=== PATIENT | male | born 1945 | race Caucasian/White ===

== ENCOUNTER → 2016-12-24 | Outpatient (CLI) | payer MEDICARE | END | disposition home or self-care (01) | LOC: GMAB 14:34 | PROVIDERS: ATTEND Family Medicine | DX: Z12.5 Encounter for screening for malignant neoplasm of prostate (principal); I10 Essential (primary) hypertension; E29.9 Testicular dysfunction, unspecified | CPT/HCPCS: 84403; 84443; G0103 ==

== ENCOUNTER → 2018-01-02 | Outpatient (CLI) | payer MEDICARE | LOC: GMAB 12:31 | PROVIDERS: ATTEND Family Medicine | DX: I10 Essential (primary) hypertension (principal); E29.9 Testicular dysfunction, unspecified; Z12.5 Encounter for screening for malignant neoplasm of prostate | CPT/HCPCS: 84403; 84443; G0103 ==

== ENCOUNTER → 2018-06-25 | Outpatient (CLI) | payer MEDICARE ==
--- NOTE | 2018-06-28 09:21 | RAD ---
EXAM DESCRIPTION: Hand,Left 3 Views CLINICAL HISTORY: HAND PN COMPARISON: None Available. TECHNIQUE: AP, LATERAL, AND OBLIQUE FINDINGS: The visualized bones appear well mineralized. No acute fracture or dislocation. The soft tissues appear grossly unremarkable. Mild degenerative changes are identified in the first carpometacarpal joint. IMPRESSION: Mild degenerative changes are identified in the first carpometacarpal joint. . Electronically signed by: Gaurav Sarabia MD 06/28/2018 9:20 AM [facility]
== END ==
LOC: RAD 08:09
PROVIDERS: ATTEND Orthopaedic Surgery
DX: M79.642 Pain in left hand (principal)

== ENCOUNTER → 2018-10-01 | Outpatient (CLI) | payer MEDICARE, OTHER ==
--- NOTE | 2018-10-01 16:29 | MRI ---
EXAM DESCRIPTION: Brain w/oContrast CLINICAL HISTORY: HEADACHE COMPARISON: None available TECHNIQUE: Non contrast MRI of the brain is performed according to our usual protocol including multiplanar multi sequence technique. FINDINGS: Sagittal T1 images show intact corpus callosum. Normal pituitary gland with normal T1 appearance of the ambrocio and medulla and upper cervical cord. Normal signal intensity within the clivus and calvarium. Axial T2 fat sat images reveal preservation of intracranial vascular flow voids. Normal crain matter and white matter T2 signal intensity. Prominent ventricles and sulci. The globes appear intact and symmetrical. No abnormal fluid levels in the paranasal sinuses, tympanic cavities or mastoid air cells. Small mucous retention cyst in the inferior right maxillary sinus measures 1.1 cm. Axial flair images show normal signal intensity of the crain matter and the white matter. No definite microvascular ischemic changes. Diffusion weighted images are negative for focal intense increased signal intensity in the brain parenchyma to suggest restricted diffusion. ADC mapping is negative. Axial T1 images show normal crain-white matter differentiation. No high signal intensity hemorrhagic lesion of the brain parenchyma. No subdural hematoma. Axial susceptibility weighted images are negative for focal signal loss to suggest abnormal brain parenchymal calcification or hemosiderin deposition. IMPRESSION: Normal MRI examination of the brain. Electronically signed by: Slim Glass MD 10/01/2018 4:26 PM TECHNICIAN
== END ==
LOC: GMAE 14:40
PROVIDERS: ATTEND Family Medicine
DX: R51 Headache (principal)

== ENCOUNTER → 2019-02-09 | Outpatient (CLI) | payer MEDICARE, OTHER ==
--- NOTE | 2019-02-09 09:30 | RAD ---
EXAM DESCRIPTION: Elbow,Left 3 Views CLINICAL HISTORY: M25.522 COMPARISON: None. TECHNIQUE: 3 views left FINDINGS: Mild degenerative changes are observed in the ulnar trochlear articulation. No fracture is detected. No joint effusion is seen. IMPRESSION: Mild degenerative changes are observed in the elbow. Electronically signed by: Aquiles Recio MD 02/09/2019 9:27 AM CDT
== END ==
LOC: RAD 09:07
PROVIDERS: ATTEND Orthopaedic Surgery
DX: M19.022 Primary osteoarthritis, left elbow (principal)

== ENCOUNTER → 2019-12-23 | Outpatient (CLI) | payer MEDICARE, OTHER | LOC: GMAE 11:27 | PROVIDERS: ATTEND Family Medicine | DX: D50.9 Iron deficiency anemia, unspecified (principal); Z12.5 Encounter for screening for malignant neoplasm of prostate; I10 Essential (primary) hypertension; E55.9 Vitamin D deficiency, unspecified; E78.2 Mixed hyperlipidemia; E29.9 Testicular dysfunction, unspecified | CPT/HCPCS: 82306; 82728; 84403; 84443; G0103 ==